=== PATIENT | female | born 1980 | race Caucasian/White ===

== ENCOUNTER 2019-07-03 12:44 | Emergency (ER) | payer BC, OTHER ==
[~2019-07-03] VITALS: Ht 165.1 cm; Wt 106.7 kg
[2019-07-03] MEDS ORDERED: CEPH-507 PO (13:10)
--- NOTE | 2019-07-03 13:10 | ED EENT ---
History of Present Illness General Chief Complaint: Ear Problems Stated Complaint: YADY EAR PAIN Nursing Triage Note: Patient presents to the ED with c/o bilateral ear pain. She reports that she hasn't been feeling well for the past 2 day. She states that her ears started throbbing when she tried to go to sleep and she has been running a fever off and on as well. She has tried tylenol and ibuprofen but the pain was not relieved. History of Present Illness Date Seen by Provider: Jul 03, 2019 Time Seen by Provider: 12:45 Initial Comments Patient is here with 3 days of upper respiratory congestion little bit of hoarseness now moving into her left ear with quite a bit of pain low-grade fever no chills taken some ibuprofen and Tylenol has been around sick people Timing/Duration: last week Severity: mild Location: ear (L) Prearrival Treatment: over the counter meds Modifying Factors: Improves With Coughing Associated Symptoms: No ear drainage; fever, nasal congestion/drainage; No sore throat; voice change Allergies and Home Medications Allergies Coded Allergies: No Known Drug Allergies (Unverified , 07/03/19) Patient Home Medication List Home Medication List Reviewed: Yes Review of Systems Review of Systems Constitutional: fever, malaise Eyes: Denies Pain Ears: Pain; Denies Purulent Discharge Nose: congestion Mouth: pain, swelling Throat: hoarse, painful swallowing Respiratory: cough; No dyspnea on exertion Cardiovascular: No chest pain Gastrointestinal: No nausea, No vomiting Musculoskeletal: No joint swelling, No muscle pain Skin: No rash Neurological: Denies Headache Past [id number] Hx Past Med/Social Hx: Reviewed Nursing Past Med/Soc Hx Patient Social History Alcohol Use: Denies Use Recreational Drug Use: No Smoking Status: Never a Smoker 2nd Hand Smoke Exposure: No Recent Foreign Travel: No Contact w/Someone Who Travel: No Recent Infectious Disease Expo: No Recent Hopitalizations: No Physical Abuse: No Sexual Abuse: No Mistreated: No Fear: No Seasonal Allergies Seasonal Allergies: No Past Medical History Respiratory: No Cardiac: No Neurological: No Genitourinary: No Gastrointestinal: No Musculoskeletal: No Endocrine: No HEENT: No Cancer: No Psychosocial: No Integumentary: No Blood Disorders: No Physical Exam Height, Weight, BMI Height: '" Weight: lbs. oz. kg; 39.00 BMI Method: General Appearance: WD/WN, mild distress Ears: left ear other (left TM inflamed right less so) Nose: discharge Mouth/Throat: pharynx tenderness; No tonsillar exudate Neck: No non-tender, No normal inspection Cardiovascular: No regular rate, rhythm, No no murmur Respiratory: lungs clear, normal breath sounds Neurologic/Psychiatric: oriented x 3 Skin: normal color, warm/dry Progress/Results/Core Measures Results/Orders Blood Pressure Mean: 108 Departure Impression Primary Impression: Otitis media Qualified Codes: H66.002 - Acute suppurative otitis media without spontaneous rupture of ear drum, left ear Disposition: HOME, SELF-CARE Condition: Stable Departure-Patient Inst. Referrals: NO,LOCAL PHYSICIAN (PCP/Family) Primary Care Physician Patient Instructions: Ear Infections (Otitis Media) (DC) Scripts Cephalexin (Keflex) 500 Mg Capsule 500 MG PO QID, #40 CAP Prov: FRANK ALMEIDA JR, MD 07/03/19 FRANK ALMEIDA JR, MD Jul 03, 2019 13:09
[2019-07-03 13:16] VITALS: BP 144/90
== END 2019-07-03 13:16 | disposition home or self-care (01) ==
LOC: ER FS 12:46
DX: H66.93 Otitis media, unspecified, bilateral (principal)
CPT/HCPCS: 99282